=== PATIENT | female | born 1995 ===

== ENCOUNTER 2020-05-20 22:38 | Inpatient (IN) | payer SELFPAY ==
[2020-05-20] MEDS ORDERED: Sodium Chloride 0.9% 10 ML Syringe FLUSH PRN (23:02)
[2020-05-20] MEDS ORDERED: Terbutaline 1 MG/ML SDV SUBCUT PRN (23:02)
[2020-05-20] MEDS ORDERED: Tranexamic Acid 1,000 MG in Sodium Chloride 0.9% 100 ML IV PRN (23:02)
[2020-05-20] MEDS ORDERED: Water For Irrigation,Sterile 1,000 ML Container IRR PRN (23:02)
[2020-05-20] MEDS ORDERED: Lidocaine 1% 50 ML MDV INJECT PRN (23:02)
[2020-05-20] MEDS ORDERED: Sodium Chloride 0.9% 2.5 ML Syringe FLUSH PRN (23:02)
[2020-05-20] MEDS ORDERED: Misoprostol 200 MCG Tab PO PRN (23:02)
[2020-05-20] MEDS ORDERED: Methylergonovine 0.2 MG/1 ML Amp IM PRN (23:02)
[2020-05-20] MEDS ORDERED: Sodium Chloride 0.9% 10 ML SDV IV PRN (23:02)
[2020-05-20] MEDS ORDERED: Nalbuphine 10 MG/1 ML Vial IVPUSH PRN (23:02)
[2020-05-20] MEDS ORDERED: Carboprost Tromethamine 250 MCG/1 ML Amp IM PRN (23:02)
[2020-05-20] MEDS ORDERED: Misoprostol 25 MCG (1/4 of 100 MCG) Tab VAG PRN (23:02)
[2020-05-20] MEDS ORDERED: Oxytocin/0.9 % Sodium Chloride 30 UNIT/500 ML BAG IV SCH ×2 (23:15)
[2020-05-21] MEDS: Butorphanol 1 MG/ML SDV IVPUSH PRN ×2 (02:40→04:13)
[2020-05-21] MEDS: Lactated Ringers 1,000 ML IV SCH ×4 (04:13→17:09)
[2020-05-21] MEDS ORDERED: fentaNYL 100 MCG/2 ML SDV ONE ×4 (05:14→21:57)
[2020-05-21] MEDS ORDERED: Ropivacaine HCl/PF 100 ML ONE ×2 (05:14→14:04)
--- NOTE | 2020-05-21 05:33 | PCM.PREANE ---
Preanesthetic Assessment - Anesthesia/Transfusion/Family Hx Anesthesia History: No Prior Anesthesia Family History of Anesthesia Reaction: No Transfusion History: No Prior Transfusion(s) - Physical Assessment NPO Status Date: 05/21/20 NPO Status Time: 02:00 Height: 1.57 m Weight: 76.204 kg ASA Class: 2 - Lab Values: Laboratory Last Values WBC 11.62 K/uL (4.0-11.0) H 05/20/20 23:30 RBC 4.41 M/uL (4.30-5.90) 05/20/20 23:30 Hgb 12.1 g/dL (12.0-16.0) 05/20/20 23:30 Hct 38.7 % (36.0-46.0) 05/20/20 23:30 MCV 87.8 fL (80.0-98.0) 05/20/20 23:30 MCH 27.4 pg (27.0-32.0) 05/20/20 23:30 MCHC 31.3 g/dL (31.0-37.0) 05/20/20 23:30 RDW Std Deviation 43.0 fl (28.0-62.0) 05/20/20 23:30 RDW Coeff of Chadd 13 % (11.0-15.0) 05/20/20 23:30 Plt Count 148 K/uL (150-400) L 05/20/20 23:30 MPV 13.20 fL (7.40-12.00) H 05/20/20 23:30 Nucleated RBC % 0.0 /100WBC 05/20/20 23:30 Nucleated RBCs # 0 K/uL 05/20/20 23:30 Blood Type A POSITIVE 05/20/20 23:30 Antibody Screen NEGATIVE 05/20/20 23:30 - Allergies Allergies/Adverse Reactions: Allergies Allergy/AdvReac Type Severity Reaction Status Date / Time No Known Allergies Allergy Verified 05/01/20 11:48 - Acknowledgements Anesthesia Type Planned: Epidural Pt an Appropriate Candidate for the Planned Anesthesia: Yes Alternatives and Risks of Anesthesia Discussed w Pt/Guardian: Yes Pt/Guardian Understands and Agrees with Anesthesia Plan: Yes PreAnesthesia Questionnaire Respiratory History: Reports: Asthma [employer] History: Reports: Neurological History: Reports: Migraines Psychiatric History: Reports: Depression - SUBSTANCE USE Tobacco Use Status *Q: Never Tobacco User Second Hand Smoke Exposure: No - HOME MEDS Home Medications: Home Meds Albuterol Sulfate [Proair Respiclick] 90 mcg IH ASDIRECTED PRN 05/21/20 [History] - CURRENT (IN HOUSE) MEDS Current Meds: Current Medications Butorphanol Tartrate (Stadol) 1 mg IVPUSH Q1H PRN PRN Reason: Pain Last Admin: 05/21/20 04:13 Dose: 1 mg Documented by: Carboprost Tromethamine (Hemabate Ds) 250 mcg IM ASDIRECTED PRN PRN Reason: Post Hemorrhage Oxytocin/Sodium Chloride (Oxytocin 30 Unit/500 Ml-Ns) 30 unit in 500 mls @ 250 mls/hr IV TITRATE JASON Tranexamic Acid 1,000 mg/ (Sodium Chloride) 110 mls @ 660 mls/hr IV ONETIME PRN PRN Reason: Bleeding Oxytocin/Sodium Chloride (Oxytocin 30 Unit/500 Ml-Ns) 30 unit in 500 mls @ 2 mls/hr IV TITRATE JASON; Protocol Lactated Ringer's (Ringers, Lactated) 1,000 mls @ 150 mls/hr IV ASDIRECTED JASON Last Admin: 05/21/20 04:13 Dose: 150 mls/hr Documented by: Lidocaine HCl (Xylocaine 1%) 50 ml INJECT ONETIME PRN PRN Reason: Laceration repair Methylergonovine Maleate (Methergine) 0.2 mg IM ASDIRECTED PRN PRN Reason: Post Hemorrhage Misoprostol (Cytotec) 200 mcg PO ONETIME PRN PRN Reason: Post Hemorrhage Misoprostol (Cytotec) 25 mcg VAG Q4H PRN PRN Reason: Cervical Ripening Last Admin: 05/21/20 00:48 Dose: 25 mcg Documented by: Nalbuphine HCl (Nubain) 10 mg IVPUSH Q1H PRN PRN Reason: Pain (severe 7-10) Sodium Chloride (Saline Flush) 10 ml FLUSH ASDIRECTED PRN PRN Reason: Keep Vein Open Sodium Chloride (Saline Flush) 2.5 ml FLUSH ASDIRECTED PRN PRN Reason: Keep Vein Open Sodium Chloride (Normal Saline) 10 ml IV ASDIRECTED PRN PRN Reason: IV Use Sterile Water (Sterile Water For Irrigation) 1,000 ml IRR ASDIRECTED PRN PRN Reason: delivery Terbutaline Sulfate (Brethine) 0.25 mg SUBCUT ASDIRECTED PRN PRN Reason: Tacysystole Discontinued Medications Fentanyl (Sublimaze) Confirm Administered Dose 100 mcg .ROUTE .STK-MED ONE Stop: 05/21/20 05:15 Ropivacaine (Naropin 0.2%) Confirm Administered Dose 100 mls @ as directed .ROUTE .STK-MED ONE Stop: 05/21/20 05:15
--- NOTE | 2020-05-21 05:36 | PCM.PRNOTE ---
- Free Text/Narrative Note: Anes Note Patient requests epidural for L&D. Sitting position, level L3-L4 midline approach. Sterile technique. Chloraprep scrub to lumbar area. Sterile fenestrated drape applied. Epidural space easily achieved single attempt using TERI technique. TERI at 2 cm. Cath threaded 5 cm with ease. ath secured at skin using sterile clear adhesive dressing. 0520 Test 3 cc 1.5% lido with epi negative 0525 Load 10 cc 0.2% ropivicaine with 1 mcg cc fentanyl in slow divided doses. 0528 Pump started wtih 90 cc same solution. Rate is 8 cc hr with 6 cc q 20 min prn bolus. Fuad well. Time with patient [id number] Christiano Musa CRNA
[2020-05-21] MEDS ORDERED: Bupivacaine 0.5% 10 ML SDV ONE (12:50)
--- NOTE | 2020-05-21 12:59 | PCM.SN.2 ---
- Free Text/Narrative Note: Called by nursing as the patient is having increased Lt sided pain; Rt side remains comfortable. Pt positioned Lt lateral abd 0.5% Bupivacaine 7mL given via epidural. VSS. Anesthesia time: [id number]
--- NOTE | 2020-05-21 14:22 | PCM.SN.2 ---
- Free Text/Narrative Note: Called to OB to replace empty epidural bag. Naropin 0.2% 100 ml with Fentanyl 200 mcg hung at same infusion rate of 8 ml/hour with 5 ml bolus every 15 minutes with maximum of 16 ml/hour. Epidural level approximately T8. Patient educated on signs/symptoms to let RN/anesthesia know to turn down epidural rate including SOB, heavy chest, tingly fingers. Patient verbalizes understanding. 5 ml bolus given.
[2020-05-21] MEDS ORDERED: Bupivacaine 0.5% 30 ML SDV ONE (15:20)
--- NOTE | 2020-05-21 15:38 | PCM.SN.2 ---
- Free Text/Narrative Note: Patient complaints of pain to left lower front side and breathing with contractions. Epidural catheter remains in place and taped securely to back. States the last bolus helped until now. Bolused epidural with 2 ml Fentanyl and 5 ml 0.5% Bupivacaine. Patient states she is having some relief now and is able to drift off."
--- NOTE | 2020-05-21 19:18 | PCM.SN.2 ---
- Free Text/Narrative Note: Patient complains of continuing pain and agreeable to another bolus since the last two worked. Pain is primarily on left side. Epidural bolused with 8 ml .5% Bupivacaine without relief. Patient requests that new epidural be placed.
[2020-05-21] MEDS ORDERED: Bupivicaine/fentaNYL/NS 250 ML ONE (21:56)
[2020-05-22] MEDS ORDERED: Benzocaine/Menthol 20%-0.5% Spray 78 GM Cannister TOP PRN (04:21)
[2020-05-22] MEDS ORDERED: Measles, Mumps & Rubella Vaccine 0.5 ML SDV SUBCUT ONE (04:21)
[2020-05-22] MEDS ORDERED: Witch Hazel Medicated Pads 40/Jar TOP PRN (04:21)
[2020-05-22] MEDS ORDERED: oxyCODONE 5 MG Tab PO PRN (04:21)
[2020-05-22] MEDS ORDERED: Bisacodyl 10 MG Supp RECTAL PRN (04:21)
[2020-05-22] MEDS ORDERED: Lanolin 100% Cream 7 GM Tube TOP PRN (04:21)
[2020-05-22] MEDS ORDERED: Acetaminophen 500 MG Tab PO PRN ×2 (04:21)
[2020-05-22] MEDS ORDERED: Docusate Sodium 100 MG Cap PO PRN (04:21)
[2020-05-22] MEDS ORDERED: Ibuprofen 400 MG Tab PO PRN (04:21)
--- NOTE | 2020-05-22 08:13 | PCM48HPAN ---
Post Anesthesia Note - EVALUATION WITHIN 48HRS OF ANESTHETIC Vital Signs in Normal Range: Yes Patient Participated in Evaluation: Yes Respiratory Function Stable: Yes Airway Patent: Yes Cardiovascular Function Stable: Yes Hydration Status Stable: Yes Pain Control Satisfactory: Yes Nausea and Vomiting Control Satisfactory: Yes Mental Status Recovered: Yes Vital Signs: Last Vital Signs Temp 36.6 C 05/22/20 08:10 Pulse 80 05/22/20 08:10 Resp 15 05/22/20 08:10 BP 115/68 05/22/20 08:10 Pulse Ox 96 05/22/20 08:10 - COMMENTS/OBSERVATIONS Free Text/Narrative:: Denies any complaints at this time. States last epidural bolus worked and got her to delivery.
[2020-05-22] MEDS: Ibuprofen 800 MG Tab PO PRN (09:48)
--- NOTE | 2020-05-22 12:52 | OR ---
SURGEON: Nnamdi Thakkar MD DATE OF PROCEDURE: 05/22/2020 INDICATION FOR PROCEDURE: A 24-year-old, G1, P0, at 39 weeks and 1 day admitted for elective induction of labor. The patient had an uncomplicated , GBS is negative and rubella was nonimmune. The patient received a dose of Cytotec for induction of labor and began having variable deceleration, which did recover with repositioning. She was tami regularly and received an epidural for pain. She did not make further cervical change and was started on Pitocin. However, the baby did not tolerate Pitocin and had more prolonged decelerations. The Pitocin was turned off and she slowly made progress on her own to 7cm. The baby had category 1 and intermittent 2 tracing, with variable decelerations. She was having increasing pain, therefore, the epidural was replaced. She did not make further cervical change and the Pitocin was again started. The patient then began to progress and became fully dilated and pushing with contractions. PREOPERATIVE DIAGNOSES: 1. Eugene intrauterine at 39 weeks and 1 day. 2. Nonreassuring heart rate. POSTOPERATIVE DIAGNOSES: 1. Eugene intrauterine at 39 weeks and 1 day. 2. Nonreassuring heart rate. PROCEDURE PERFORMED: Normal spontaneous vaginal delivery, repair of first-degree and left vaginal laceration. ANESTHESIA: Epidural FINDING: Viable male infant. Did have good respiratory efforts initially, requiring resuscitation. AGPAR 1,2,6,9. Weight of 3270g DESCRIPTION OF PROCEDURE: The patient pushed with contractions for approximately 2-1/2 hours with good descent. The baby had early decelerations with contractions to the 80 and 90s, but recovered well after she stops pushing. The head delivered in occiput anterior position over an intact perineum. Anterior shoulder delivered easily followed by posterior shoulder and remaining body. There was no nuchal cord. The baby was placed on the maternal chest, but did not cry or breathe initially, so the cord was quickly clamped and cut and baby taken over to awaiting nursery staff. The baby did not have good respiratory efforts and required chest compressions and oxygen, but did respond after about 5 minutes of resuscitation. The cord gases were obtained. The placenta was removed with gentle traction on the umbilical cord. It was examined and found to be intact with 3-vessel cord. The fundal massage was performed, and the uterus was firm and at the umbilicus, and bleeding was light. The perineum was examined. She had a first-degree perineal laceration and a left vaginal laceration, was repaired with 3-0 Vicryl in the usual fashion. Hemostasis was achieved after the repair. The patient tolerated the procedure well, was given care instructions. ARLENE HOLT /[id number] MTDMark
[2020-05-23] MEDS: Ibuprofen 800 MG Tab PO PRN ×3 (01:43→17:42)
--- NOTE | 2020-05-23 08:59 | PCM.PNPP ---
- General Info Date of Service: 05/23/20 Functional Status: Reports: Pain Controlled, Tolerating Diet, Ambulating, Urinating - Review of Systems General: Reports: No Symptoms HEENT: Reports: No Symptoms Pulmonary: Reports: No Symptoms Cardiovascular: Reports: No Symptoms Gastrointestinal: Reports: No Symptoms Genitourinary: Reports: No Symptoms Musculoskeletal: Reports: No Symptoms Skin: Reports: No Symptoms Neurological: Reports: No Symptoms Psychiatric: Reports: No Symptoms - Patient Data Vital Signs - Most Recent: Last Vital Signs Temp 36.5 C 05/23/20 05:31 Pulse 76 05/23/20 05:31 Resp 16 05/22/20 20:13 BP 104/62 05/23/20 05:31 Pulse Ox 96 05/23/20 05:31 Weight - Most Recent: 168 lb Lab Results - Last 24 Hours: Laboratory Results - last 24 hr 05/23/20 Range/Units 05:37 Hgb 11.4 L (12.0-16.0) g/dL Hct 35.4 L (36.0-46.0) % Med Orders - Current: Current Medications Acetaminophen (Tylenol Extra Strength) 500 mg PO Q4H PRN PRN Reason: Pain Acetaminophen (Tylenol Extra Strength) 1,000 mg PO Q4H PRN PRN Reason: Pain Benzocaine/Menthol (Dermoplast Pain Relief 20%-0.5% [place]) 78 gm TOP ASDIRECTED PRN PRN Reason: Perineal Comfort Measure Last Admin: 05/22/20 09:50 Dose: 1 canister Documented by: Bisacodyl (Dulcolax) 10 mg RECTAL ONETIME PRN PRN Reason: Constipation Butorphanol Tartrate (Stadol) 1 mg IVPUSH Q1H PRN PRN Reason: Pain Last Admin: 05/21/20 04:13 Dose: 1 mg Documented by: Carboprost Tromethamine (Hemabate Ds) 250 mcg IM ASDIRECTED PRN PRN Reason: Post Hemorrhage Docusate Sodium (Colace) 100 mg PO BID PRN PRN Reason: Constipation Last Admin: 05/22/20 09:48 Dose: 100 mg Documented by: Emollient Ointment (Lansinoh Hpa) 0 gm TOP ASDIRECTED PRN PRN Reason: Sore Nipples Oxytocin/Sodium Chloride (Oxytocin 30 Unit/500 Ml-Ns) 30 unit in 500 mls @ 250 mls/hr IV TITRATE JASON Tranexamic Acid 1,000 mg/ (Sodium Chloride) 110 mls @ 660 mls/hr IV ONETIME PRN PRN Reason: Bleeding Oxytocin/Sodium Chloride (Oxytocin 30 Unit/500 Ml-Ns) 30 unit in 500 mls @ 2 mls/hr IV TITRATE JASON; Protocol Last Titration: 05/22/20 06:44 Dose: 999 munits/min, 999 mls/hr Documented by: Lactated Ringer's (Ringers, Lactated) 1,000 mls @ 150 mls/hr IV ASDIRECTED JASON Last Admin: 05/21/20 17:09 Dose: 300 mls/hr Documented by: Ibuprofen (Motrin) 400 mg PO Q4H PRN PRN Reason: Pain Ibuprofen (Motrin) 800 mg PO Q6H PRN PRN Reason: Pain Last Admin: 05/23/20 07:46 Dose: 800 mg Documented by: Lidocaine HCl (Xylocaine 1%) 50 ml INJECT ONETIME PRN PRN Reason: Laceration repair Methylergonovine Maleate (Methergine) 0.2 mg IM ASDIRECTED PRN PRN Reason: Post Hemorrhage Misoprostol (Cytotec) 200 mcg PO ONETIME PRN PRN Reason: Post Hemorrhage Misoprostol (Cytotec) 25 mcg VAG Q4H PRN PRN Reason: Cervical Ripening Last Admin: 05/21/20 00:48 Dose: 25 mcg Documented by: Nalbuphine HCl (Nubain) 10 mg IVPUSH Q1H PRN PRN Reason: Pain (severe 7-10) Oxycodone HCl (Oxycodone) 5 mg PO Q2H PRN PRN Reason: Pain Sodium Chloride (Saline Flush) 10 ml FLUSH ASDIRECTED PRN PRN Reason: Keep Vein Open Sodium Chloride (Saline Flush) 2.5 ml FLUSH ASDIRECTED PRN PRN Reason: Keep Vein Open Sodium Chloride (Normal Saline) 10 ml IV ASDIRECTED PRN PRN Reason: IV Use Sterile Water (Sterile Water For Irrigation) 1,000 ml IRR ASDIRECTED PRN PRN Reason: delivery Terbutaline Sulfate (Brethine) 0.25 mg SUBCUT ASDIRECTED PRN PRN Reason: Tacysystole Witch Shena (Tucks) 1 pad TOP ASDIRECTED PRN PRN Reason: comfort care Last Admin: 05/22/20 09:49 Dose: 1 tub Documented by: Discontinued Medications Bupivacaine HCl (Sensorcaine-Mpf 0.5%) Confirm Administered Dose 10 ml .ROUTE .STK-MED ONE Stop: 05/21/20 12:51 Last Admin: 05/22/20 20:45 Dose: Not Given Documented by: Bupivacaine HCl (Marcaine 0.5%) Confirm Administered Dose 30 ml .ROUTE .STK-MED ONE Stop: 05/21/20 15:21 Last Admin: 05/22/20 20:46 Dose: Not Given Documented by: Fentanyl (Sublimaze) Confirm Administered Dose 100 mcg .ROUTE .STK-MED ONE Stop: 05/21/20 05:15 Last Admin: 05/22/20 20:45 Dose: Not Given Documented by: Fentanyl (Sublimaze) Confirm Administered Dose 200 mcg .ROUTE .STK-MED ONE Stop: 05/21/20 14:06 Last Admin: 05/22/20 20:46 Dose: Not Given Documented by: Fentanyl (Sublimaze) Confirm Administered Dose 100 mcg .ROUTE .STK-MED ONE Stop: 05/21/20 15:20 Last Admin: 05/22/20 20:46 Dose: Not Given Documented by: Fentanyl (Sublimaze) Confirm Administered Dose 100 mcg .ROUTE .STK-MED ONE Stop: 05/21/20 21:58 Last Admin: 05/22/20 20:46 Dose: Not Given Documented by: Ropivacaine (Naropin 0.2%) Confirm Administered Dose 100 mls @ as directed .ROUTE .STK-MED ONE Stop: 05/21/20 05:15 Last Admin: 05/22/20 20:45 Dose: Not Given Documented by: Ropivacaine (Naropin 0.2%) Confirm Administered Dose 100 mls @ as directed .ROUTE .STK-MED ONE Stop: 05/21/20 14:05 Last Admin: 05/22/20 20:46 Dose: Not Given Documented by: Fentanyl/Bupivacaine HCl (Fentanyl/Bupivacaine/Ns 2 Mcg-0.125% 250 Ml) Confirm Administered Dose 250 mls @ as directed .ROUTE .STK-MED ONE Stop: 05/21/20 21:57 Last Admin: 05/22/20 20:46 Dose: Not Given Documented by: Measles/Mumps/Rubella Vaccine Live (M-M-R Ii Vaccine) 0.5 ml SUBCUT .ONCE ONE Stop: 05/22/20 04:22 - Infant Interaction Disposition, : at Bedside Feeding: Breastfed Infant; Nursed Well Support Person: - Recovery Exam Fundal Tone: Firm Fundal Level: 1 Fingerbreadths Below Umbilicus Fundal Placement: Midline Lochia Amount: Scant Lochia Color: Rubra/Red Perineum Description: Other (see below) Other Perinuem Description: 1st degree laceration. Episiotomy/Laceration: Approximated Bladder Status: Voiding Urinary Elimination: Voided - Exam General: Alert, Oriented, Cooperative, No Acute Distress HEENT: Pupils Equal Neck: Supple, Trachea Midline, No JVD Lungs: Normal Respiratory Effort GI/Abdominal Exam: Soft, Non-Tender, No Organomegaly, No Distention Extremities: Normal Inspection, Normal Range of Motion, Non-Tender, No Pedal Edema Skin: Warm, Dry, Intact Wound/Incisions: Healing Well Neurological: No New Focal Deficit Psy/Mental Status: Alert, Normal Affect, Normal Mood - Problem List Review Problem List Initiated/Reviewed/Updated: Yes - Assessment Assessment:: 24yo PPD1 s/p , stable and recovering well. - Plan Plan:: - vitals stable - hgb 11.4, no s/s of anemia - baby well Baby is awaiting blood cultures at 48hrs, plan for discharge home tomorrow.
--- NOTE | 2020-05-24 09:29 | PCM.PNPP ---
- General Info Date of Service: 05/24/20 Functional Status: Reports: Pain Controlled, Tolerating Diet, Ambulating, Urinating - Review of Systems General: Reports: No Symptoms HEENT: Reports: No Symptoms Pulmonary: Reports: No Symptoms Cardiovascular: Reports: No Symptoms Gastrointestinal: Reports: No Symptoms Genitourinary: Reports: No Symptoms Musculoskeletal: Reports: No Symptoms Skin: Reports: No Symptoms Neurological: Reports: No Symptoms Psychiatric: Reports: No Symptoms - Patient Data Vital Signs - Most Recent: Last Vital Signs Temp 36.6 C 05/24/20 08:00 Pulse 76 05/24/20 08:00 Resp 17 05/24/20 08:00 BP 135/73 05/24/20 08:00 Pulse Ox 97 05/24/20 08:00 Weight - Most Recent: 168 lb Lab Results - Last 24 Hours: Laboratory Results - last 24 hr 05/20/20 Range/Units 23:30 RPR Non-Reac (Non-Reac) Med Orders - Current: Current Medications Acetaminophen (Tylenol Extra Strength) 500 mg PO Q4H PRN PRN Reason: Pain Acetaminophen (Tylenol Extra Strength) 1,000 mg PO Q4H PRN PRN Reason: Pain Last Admin: 05/23/20 11:54 Dose: 1,000 mg Documented by: Benzocaine/Menthol (Dermoplast Pain Relief 20%-0.5% [place]) 78 gm TOP ASDIRECTED PRN PRN Reason: Perineal Comfort Measure Last Admin: 05/22/20 09:50 Dose: 1 canister Documented by: Bisacodyl (Dulcolax) 10 mg RECTAL ONETIME PRN PRN Reason: Constipation Butorphanol Tartrate (Stadol) 1 mg IVPUSH Q1H PRN PRN Reason: Pain Last Admin: 05/21/20 04:13 Dose: 1 mg Documented by: Carboprost Tromethamine (Hemabate Ds) 250 mcg IM ASDIRECTED PRN PRN Reason: Post Hemorrhage Docusate Sodium (Colace) 100 mg PO BID PRN PRN Reason: Constipation Last Admin: 05/22/20 09:48 Dose: 100 mg Documented by: Emollient Ointment (Lansinoh Hpa) 0 gm TOP ASDIRECTED PRN PRN Reason: Sore Nipples Oxytocin/Sodium Chloride (Oxytocin 30 Unit/500 Ml-Ns) 30 unit in 500 mls @ 250 mls/hr IV TITRATE JASON Tranexamic Acid 1,000 mg/ (Sodium Chloride) 110 mls @ 660 mls/hr IV ONETIME PRN PRN Reason: Bleeding Oxytocin/Sodium Chloride (Oxytocin 30 Unit/500 Ml-Ns) 30 unit in 500 mls @ 2 mls/hr IV TITRATE JASON; Protocol Last Titration: 05/22/20 06:44 Dose: 999 munits/min, 999 mls/hr Documented by: Lactated Ringer's (Ringers, Lactated) 1,000 mls @ 150 mls/hr IV ASDIRECTED JASON Last Admin: 05/21/20 17:09 Dose: 300 mls/hr Documented by: Ibuprofen (Motrin) 400 mg PO Q4H PRN PRN Reason: Pain Ibuprofen (Motrin) 800 mg PO Q6H PRN PRN Reason: Pain Last Admin: 05/23/20 17:42 Dose: 800 mg Documented by: Lidocaine HCl (Xylocaine 1%) 50 ml INJECT ONETIME PRN PRN Reason: Laceration repair Methylergonovine Maleate (Methergine) 0.2 mg IM ASDIRECTED PRN PRN Reason: Post Hemorrhage Misoprostol (Cytotec) 200 mcg PO ONETIME PRN PRN Reason: Post Hemorrhage Misoprostol (Cytotec) 25 mcg VAG Q4H PRN PRN Reason: Cervical Ripening Last Admin: 05/21/20 00:48 Dose: 25 mcg Documented by: Nalbuphine HCl (Nubain) 10 mg IVPUSH Q1H PRN PRN Reason: Pain (severe 7-10) Oxycodone HCl (Oxycodone) 5 mg PO Q2H PRN PRN Reason: Pain Sodium Chloride (Saline Flush) 10 ml FLUSH ASDIRECTED PRN PRN Reason: Keep Vein Open Sodium Chloride (Saline Flush) 2.5 ml FLUSH ASDIRECTED PRN PRN Reason: Keep Vein Open Sodium Chloride (Normal Saline) 10 ml IV ASDIRECTED PRN PRN Reason: IV Use Sterile Water (Sterile Water For Irrigation) 1,000 ml IRR ASDIRECTED PRN PRN Reason: delivery Terbutaline Sulfate (Brethine) 0.25 mg SUBCUT ASDIRECTED PRN PRN Reason: Tacysystole Witch Shena (Tucks) 1 pad TOP ASDIRECTED PRN PRN Reason: comfort care Last Admin: 05/22/20 09:49 Dose: 1 tub Documented by: Discontinued Medications Bupivacaine HCl (Sensorcaine-Mpf 0.5%) Confirm Administered Dose 10 ml .ROUTE .STK-MED ONE Stop: 05/21/20 12:51 Last Admin: 05/22/20 20:45 Dose: Not Given Documented by: Bupivacaine HCl (Marcaine 0.5%) Confirm Administered Dose 30 ml .ROUTE .STK-MED ONE Stop: 05/21/20 15:21 Last Admin: 05/22/20 20:46 Dose: Not Given Documented by: Fentanyl (Sublimaze) Confirm Administered Dose 100 mcg .ROUTE .STK-MED ONE Stop: 05/21/20 05:15 Last Admin: 05/22/20 20:45 Dose: Not Given Documented by: Fentanyl (Sublimaze) Confirm Administered Dose 200 mcg .ROUTE .STK-MED ONE Stop: 05/21/20 14:06 Last Admin: 05/22/20 20:46 Dose: Not Given Documented by: Fentanyl (Sublimaze) Confirm Administered Dose 100 mcg .ROUTE .STK-MED ONE Stop: 05/21/20 15:20 Last Admin: 05/22/20 20:46 Dose: Not Given Documented by: Fentanyl (Sublimaze) Confirm Administered Dose 100 mcg .ROUTE .STK-MED ONE Stop: 05/21/20 21:58 Last Admin: 05/22/20 20:46 Dose: Not Given Documented by: Ropivacaine (Naropin 0.2%) Confirm Administered Dose 100 mls @ as directed .ROUTE .STK-MED ONE Stop: 05/21/20 05:15 Last Admin: 05/22/20 20:45 Dose: Not Given Documented by: Ropivacaine (Naropin 0.2%) Confirm Administered Dose 100 mls @ as directed .ROUTE .STK-MED ONE Stop: 05/21/20 14:05 Last Admin: 05/22/20 20:46 Dose: Not Given Documented by: Fentanyl/Bupivacaine HCl (Fentanyl/Bupivacaine/Ns 2 Mcg-0.125% 250 Ml) Confirm Administered Dose 250 mls @ as directed .ROUTE .STK-MED ONE Stop: 05/21/20 21:57 Last Admin: 05/22/20 20:46 Dose: Not Given Documented by: Measles/Mumps/Rubella Vaccine Live (M-M-R Ii Vaccine) 0.5 ml SUBCUT .ONCE ONE Stop: 05/22/20 04:22 - Interaction Disposition, : [place] at Bedside Feeding: Breastfed ; Nursed Well Support Person: - Recovery Exam Fundal Tone: Firm Fundal Level: 1 Fingerbreadths Below Umbilicus Fundal Placement: Midline Lochia Amount: Scant, Small Lochia Color: Rubra/Red Perineum Description: Other (see below) Other Perinuem Description: 1st degree laceration. Episiotomy/Laceration: Approximated Bladder Status: Voiding Urinary Elimination: Voided - Exam General: Alert, Oriented, Cooperative, No Acute Distress HEENT: Pupils Equal, Pupils Reactive Neck: Supple, Trachea Midline, No JVD Lungs: Normal Respiratory Effort GI/Abdominal Exam: Soft, Non-Tender, No Distention Extremities: Normal Inspection, Normal Range of Motion, Non-Tender, No Pedal Edema Skin: Warm, Dry, Intact Wound/Incisions: Healing Well Neurological: No New Focal Deficit Psy/Mental Status: Alert, Normal Affect, Normal Mood - Problem List Review Problem List Initiated/Reviewed/Updated: Yes - Assessment Assessment:: 24yo PPD2 s/p , stable and recovering well. - Plan Plan:: - vitals stable - hgb 11.4, no s/s of anemia - baby well Plan for discharge home today. Reviewed care instructions
[2020-05-24] MEDS ORDERED: Measles, Mumps & Rubella Vaccine 0.5 ML SDV SUBCUT ONE (11:00)
== END 2020-05-24 11:44 | disposition home or self-care (01) | DRG 807 ==
LOC: MW.OBCHECK 22:38 → MW.OB 22:39 → OBSVTOIN 05-22 03:44 → MW.OB 05-22 09:23
PROVIDERS: ADMIT Obstetrics & Gynecology; ATTEND Obstetrics & Gynecology
PROC: 10E0XZZ Delivery of Products of Conception, External Approach (ICD-10-PCS; principal; 2020-05-22)
PROC: 10907ZC Drainage of Amniotic Fluid, Therapeutic from Products of Conception, Via Natural or Artificial Opening (ICD-10-PCS; 2020-05-22)
PROC: 3E0P7VZ Introduction of Hormone into Female Reproductive, Via Natural or Artificial Opening (ICD-10-PCS; 2020-05-22)
PROC: 3E0R3BZ Introduction of Anesthetic Agent into Spinal Canal, Percutaneous Approach (ICD-10-PCS; 2020-05-22)
PROC: 00HU33Z Insertion of Infusion Device into Spinal Canal, Percutaneous Approach (ICD-10-PCS; 2020-05-22)
DX: O76 Abnormality in fetal heart rate and rhythm complicating labor and delivery (principal); Z37.0 Single live birth; Z3A.39 39 weeks gestation of pregnancy; O70.0 First degree perineal laceration during delivery; Z20.828 Contact with and (suspected) exposure to other viral communicable diseases
CPT/HCPCS: 01967; 36415; 51702; 59025; 59409; 82803; 85014; 85018; 85027; 86592; 86850; 86900; 86901; 90707; A9270-GY; J0595; J2590; J7120